=== PATIENT | female | born 1980 | race Two or more races ===

== ENCOUNTER 2025-05-31 16:00 | Outpatient (RCR) | payer BC, SELFPAY ==
--- NOTE | 2025-05-08 15:42 | PT.OIERPT ---
PT OP Initial Eval Patient Information Outpatient Physical Therapy Treatment Date: 05/08/25 Visit Reasons: low back pain with sciatica Medical Diagnosis: M54.50 Treatment Dx #1: LBP Start of Care: 05/08/25 Date of Onset: 6 weeks ago Smoking Status Smoking Status: Never smoker Initial Assessment Subjective: Pt is 44 yr old female who reports LBP sharp pain the last episode 6 weeks ago. She denies pain into the glutes or LE's but the pain spreads laterally from the beltline. Increased pain with sitting >30 minutes, bending fwd and lifting heavy things. She is a teacher and helps to stand up. PMH: Achilles tendon repair, B plantar fasciitis, allergies Imaging: none of L/S Pt goal: to get rid of the LBP and to know what to do and not to do when the back hurts Objective: Trunk ArOM: ? B SB 50% of normal with pain ? Extension: 20% with pain around L4-5, L5-S1 ? Flexion: 10 from floor with LBP ? B rotation: 60% with pain ? TTP: moderate paraspinals L5-S1 ? Neuro: B SLR: negative Sidelying compression: positive pain referral from R SI joint Assessment: Pt presentation consistent with R SI joint dysfunction and possible lumbar disc irritation. Pt requires skilled therapy to meet goals and has fair rehab potential. Eval followed by SI belt printout. Short Term and Fdc Goals 1. Ind with HEP ? 2. Improved sitting/standing tolerance to 60 minutes with <=4/10 LBP ? 3. Decreased lower paraspinal TTP from mod to min 4. Improved HH chore tolerance to at least 30 minutes with <=3/10 LBP and no ?increase in LE ssx Treatment Plan 1. Manual therapy ? 2. Therex ? 3. Modalities as indicated, moist heat, ice, estim, mechanical traction Frequency and Duration: 1-2x a week for 12 visits plus the evaluation Certification Dates: 05/08/25 to 08/06/25 Procedure Charges OP PT Eval Mod Complex 30 minutes: Yes
--- NOTE | 2025-05-15 18:45 | PT.ODAYNRPT ---
PT Outpatient Daily Note OP Daily Note Outpatient Physical Therapy Treatment Date: 05/15/25 Visit Reasons: low back pain with sciatica Subjective: Same as time of evaluation Objective: See F/S for therex Mech traction x7' at 40 lbs L/S Assessment: Good response to traction to relieve LBP Plan: Continue per POC Length of Time (minutes) of Treatment: 30 Minutes Procedure Charges Therapeutic Exercise 30 minutes: Yes
--- NOTE | 2025-05-15 18:50 | PT.ODAYNRPT ---
PT Outpatient Daily Note OP Daily Note Outpatient Physical Therapy Treatment Date: 05/15/25 Visit Reasons: low back pain with sciatica
--- NOTE | 2025-05-22 16:48 | PT.ODAYNRPT ---
PT Outpatient Daily Note OP Daily Note Outpatient Physical Therapy Treatment Date: 05/22/25 Visit Reasons: low back pain with sciatica Subjective: Pt reports her back is feeling better, notices her back is feeling better. Objective: Please see flow sheet for ther ex list. Assessment: Verbal cues and demonstrations given for pt to perform PPT exercise, pt able to perform with good technique post [employer] placing hand in l/s for feedback. Plan: Continue with pOC. Length of Time (minutes) of Treatment: 30 Minutes Procedure Charges Therapeutic Exercise 30 minutes: Yes
--- NOTE | 2025-05-31 17:41 | PT.ODAYNRPT ---
PT Outpatient Daily Note OP Daily Note Outpatient Physical Therapy Treatment Date: 05/31/25 Visit Reasons: low back pain with sciatica Subjective: Less LBP since starting therapy Objective: See F/S for therex Mechanical traction L/S x7' at 40 lbs Assessment: Good demo of posterior pelvic tilting and prone extesnion Plan: Continue per POC Length of Time (minutes) of Treatment: 30 Minutes Procedure Charges Therapeutic Exercise 30 minutes: Yes
== END 2025-06-02 23:59 | disposition home or self-care (01) ==
LOC: CPTX 16:00
PROVIDERS: PCP Nurse Practitioner; Referring Provider Nurse Practitioner; Visit Provider Nurse Practitioner
DX: M54.50 Low back pain, unspecified (principal)
CPT/HCPCS: 97110; 97162

== ENCOUNTER 2025-06-21 16:00 | Outpatient (RCR) | payer BC, SELFPAY ==
--- NOTE | 2025-06-07 17:50 | PT.ODAYNRPT ---
PT Outpatient Daily Note OP Daily Note Outpatient Physical Therapy Treatment Date: 06/07/25 Visit Reasons: low back with sciatica Subjective: Less LBP since starting therapy Objective: See F/S for therex Mechanical traction L/S x7' at 40 lbs Assessment: Good demo of posterior pelvic tilting and prone extension Plan: Continue per POC Length of Time (minutes) of Treatment: 30 Minutes Procedure Charges Therapeutic Exercise 30 minutes: Yes
--- NOTE | 2025-06-15 18:24 | PT.ODAYNRPT ---
PT Outpatient Daily Note OP Daily Note Outpatient Physical Therapy Treatment Date: 06/15/25 Visit Reasons: low back with sciatica Subjective: Less LBP since starting therapy Objective: See F/S for therex Assessment: Good demo of posterior pelvic tilting and prone extension with less LBP Plan: Continue per POC Length of Time (minutes) of Treatment: 30 Minutes Procedure Charges Therapeutic Exercise 30 minutes: Yes
--- NOTE | 2025-06-21 16:59 | PT.ODAYNRPT ---
PT Outpatient Daily Note OP Daily Note Outpatient Physical Therapy Treatment Date: 06/21/25 Visit Reasons: low back with sciatica Subjective: Less LBP since starting therapy Objective: See F/S for therex Mechanical traction L/S x7' at 50 lbs Assessment: Good demo of posterior pelvic tilting and prone extension with less LBP Plan: Continue per POC Length of Time (minutes) of Treatment: 30 Minutes Procedure Charges Therapeutic Exercise 30 minutes: Yes
== END 2025-07-02 23:59 | disposition home or self-care (01) ==
LOC: CPTX 16:00
PROVIDERS: PCP Nurse Practitioner; Referring Provider Nurse Practitioner; Visit Provider Nurse Practitioner
DX: M54.50 Low back pain, unspecified (principal)
CPT/HCPCS: 97110

== ENCOUNTER 2025-07-03 15:56 | Outpatient (RCR) | payer BC, SELFPAY ==
--- NOTE | 2025-07-03 16:41 | PT.ODAYNRPT ---
PT Outpatient Daily Note OP Daily Note Outpatient Physical Therapy Treatment Date: 07/03/25 Visit Reasons: low back pain Subjective: Less LBP since starting therapy but she was sore after last visit Objective: See F/S for therex Assessment: Good demo of lumbar stabilization and prone extension with less LBP Plan: Continue per POC Length of Time (minutes) of Treatment: 30 Minutes Procedure Charges Therapeutic Exercise 30 minutes: Yes
== END 2025-08-02 23:59 | disposition home or self-care (01) ==
LOC: CPTX 15:56
PROVIDERS: PCP Nurse Practitioner; Referring Provider Nurse Practitioner; Visit Provider Nurse Practitioner
DX: M54.50 Low back pain, unspecified (principal)
CPT/HCPCS: 97110